=== PATIENT | female | born 2000 | race Two or more races ===

== ENCOUNTER → 2022-10-29 | Outpatient (CLI) | payer BC ==
[2022-10-29 18:31] LABS: HIV 1&2 SCREEN NEGATIVE (NEGATIVE)
[2022-10-29 18:40] LABS: HEPATITIS C VIRUS ABY INDEX 0.2 INDEX (<0.8)
[2022-10-29 19:13] LABS: GC DNA AMPLIFICATION NEGATIVE (NEGATIVE)
== END ==
LOC: M PLALAB 16:16
PROVIDERS: ATTEND Obstetrics & Gynecology
DX: Z34.01 Encounter for supervision of normal first pregnancy, first trimester (principal)

== ENCOUNTER 2023-02-04 09:12 | Outpatient (CLI) | payer BC ==
[~2023-02-04] VITALS: Ht 162.6 cm; Wt 61.8 kg
[2023-02-04 09:35] VITALS: BP 126/61
[2023-02-04] MEDS ORDERED: BENA25CA4 PO (09:46)
[2023-02-04] MEDS ORDERED: ACET-897 PO (09:46)
[2023-02-04] MEDS ORDERED: PRENTAB9 PO (09:46)
[2023-02-04] MEDS ORDERED: HOME MED LIST COMPLETE! XX SCH (09:50)
[2023-02-04 10:54] LABS: APPEARANCE, URINE HAZY (CLEAR); BACTERIA, URINE AUTO 1+ (NEGATIVE); BILIRUBIN, URINE AUTO NEGATIVE (NEGATIVE); BLOOD, URINE BLOOD NEGATIVE (NEGATIVE); COLOR, URINE YELLOW (YELLOW); GLUCOSE, URINE (UA) AUTO NEGATIVE (NEGATIVE); KETONE, URINE AUTO NEGATIVE (NEGATIVE); LEUKOCYTE ESTERASE, URINE AUTO TRACE (NEGATIVE); MUCUS, URINE SMALL (NEGATIVE); NITRITE, URINE AUTO NEGATIVE (NEGATIVE); PROTEIN, URINE AUTO NEGATIVE (NEGATIVE); RBC, URINE AUTO 0 /HPF (0-3); SPECIFIC GRAVITY URINE AUTO 1.012 (1.002-1.035); SQUAMOUS EPITHELIAL CELL UR AU 5 /HPF (0-6); UROBILINOGEN, URINE AUTO 0.2 mg/dL (0.0-2.0); WBC, URINE AUTO 2 /HPF (0-3)
[2023-02-04 11:11] VITALS: BP 107/58
[2023-02-04 11:11] LABS: BASO % 0.4 % (0.0-1.0); EOS # 0.1 10^3/uL (0.0-0.5); EOS % 1.3 % (0.0-3.0); HEMATOCRIT 34.2 % (36.0-47.0); HEMOGLOBIN 11.5 g/dl (12.0-15.5); LYMPH # 1.5 10^3/uL (1.5-5.0); LYMPH % 13.4 % (24.0-44.0); MEAN CORPUSCULAR HEMOGLOBIN 31.2 pg (27.0-33.0); MEAN CORPUSCULAR HGB CONC 33.6 g/dl (32.0-36.5); MEAN CORPUSCULAR VOLUME 92.7 fl (80.0-96.0); MONO # 1.1 10^3/uL (0.0-0.8); MONO % 9.9 % (2.0-8.0); NEUTROPHILS # 8.2 10^3/uL (1.5-8.5); NEUTROPHILS % 74.1 % (36.0-66.0); PLATELET COUNT, AUTOMATED 244 10^3/uL (150-450); RED BLOOD COUNT 3.69 10^6/uL (4.00-5.40); WHITE BLOOD COUNT 11.1 10^3/uL (4.0-10.0)
[2023-02-04 13:57] VITALS: BP 116/59; O2SAT 100
[2023-02-04] MEDS ORDERED: LIDOCAINE 1% MDV 20ML VIAL INFIL PRN (14:00)
[2023-02-04] MEDS ORDERED: OXYTOCIN DRIP 30 UNITS in IV 1 EA IV PRN (14:00)
[2023-02-04] MEDS ORDERED: miSOPROStol 50MCG 1/2 TABLET SL SCH (14:05)
[2023-02-04 16:10] VITALS: BP 122/57; O2SAT 100
[2023-02-04] MEDS ORDERED: CYCLOBENZAPRINE 10MG TABLET PO ONE (17:15)
[2023-02-04] MEDS ORDERED: PERCOCET 5MG/325MG TAB PO ONE (17:15)
[2023-02-04 18:11] VITALS: BP 122/62; O2SAT 99
[2023-02-04] MEDS ORDERED: CYCL-707 PO (20:04)
[2023-02-04] MEDS ORDERED: OXYC1TAB23 PO (20:05)
== END 2023-02-04 18:15 | disposition home or self-care (01) ==
LOC: M LDO 09:12
PROVIDERS: ATTEND Specialist
DX: O26.892 Other specified pregnancy related conditions, second trimester (principal); M54.50 Low back pain, unspecified; Z3A.25 25 weeks gestation of pregnancy
CPT/HCPCS: 36415; 59025; 74181; 76857; 81001; 85025; 87086; G0463

== ENCOUNTER → 2023-02-17 | Outpatient (CLI) | payer BC ==
[~2023-02-17] MED LIST: ACET-897 PO; BENA25CA4 PO; CYCL-707 PO; OXYC1TAB23 PO; PRENTAB9 PO
[2023-02-17 14:52] LABS: HEMATOCRIT 35.3 % (36.0-47.0); HEMOGLOBIN 11.6 g/dl (12.0-15.5); MEAN CORPUSCULAR HEMOGLOBIN 30.8 pg (27.0-33.0); MEAN CORPUSCULAR HGB CONC 32.9 g/dl (32.0-36.5); MEAN CORPUSCULAR VOLUME 93.6 fl (80.0-96.0); PLATELET COUNT, AUTOMATED 298 10^3/uL (150-450); RED BLOOD COUNT 3.77 10^6/uL (4.00-5.40); WHITE BLOOD COUNT 10.6 10^3/uL (4.0-10.0)
[2023-02-17 16:15] LABS: GC DNA AMPLIFICATION NEGATIVE (NEGATIVE)
== END ==
LOC: M PLALAB 09:17
PROVIDERS: ATTEND Advanced Practice Midwife
DX: Z34.82 Encounter for supervision of other normal pregnancy, second trimester (principal)

== ENCOUNTER → 2023-04-22 | Outpatient (REF) | payer BC | LOC: M SFHCWAGY 16:51 | PROVIDERS: ATTEND Specialist | DX: Z34.83 Encounter for supervision of other normal pregnancy, third trimester (principal) ==

== ENCOUNTER 2023-05-17 06:16 | Inpatient (IN) | payer OTHER, BC ==
[2023-05-17] VITALS (30 sets, daily range): BP systolic 85–245; BP diastolic 49–121; O2SAT 98–100
[~2023-05-17] VITALS: Ht 162.6 cm; Wt 67.3 kg
[2023-05-17] MEDS ORDERED: HOME MED LIST COMPLETE! XX SCH (06:45)
[2023-05-17] MEDS ORDERED: LACTATED RINGER'S 1000 ML IV STA (07:31)
[2023-05-17] MEDS ORDERED: CARBOPROST TROMETHAMINE 250 MCG/ML AMP IM PRN (07:35)
[2023-05-17] MEDS ORDERED: METHYLERGONOVINE MALEATE 0.2MG/ML 1ML VIAL IM PRN (07:35)
[2023-05-17] MEDS ORDERED: TRANEXAMIC ACID INJection 1,000 MG in NS 100 ML IV PRN (07:35)
[2023-05-17] MEDS ORDERED: LR 1,000 ML IV SCH (07:35)
[2023-05-17] MEDS ORDERED: OXYTOCIN DRIP 30 UNITS in IV 1 EA IV PRN (07:35)
[2023-05-17] MEDS ORDERED: LIDOCAINE 1% MDV 20ML VIAL INFIL PRN (07:35)
[2023-05-17 07:58] LABS: HEMATOCRIT 34.4 % (36.0-47.0); HEMOGLOBIN 11.1 g/dl (12.0-15.5); MEAN CORPUSCULAR HEMOGLOBIN 26.4 pg (27.0-33.0); MEAN CORPUSCULAR HGB CONC 32.3 g/dl (32.0-36.5); MEAN CORPUSCULAR VOLUME 81.7 fl (80.0-96.0); PLATELET COUNT, AUTOMATED 301 10^3/uL (150-450); RED BLOOD COUNT 4.21 10^6/uL (4.00-5.40); WHITE BLOOD COUNT 12.9 10^3/uL (4.0-10.0)
[2023-05-17] MEDS ORDERED: EPIDURAL/PCA KEYS XX PRN (08:40)
[2023-05-17] MEDS ORDERED: FENTANYL/ROPIVACAINE/NACL BAG 100 ML EPIDURAL SCH (08:40)
[2023-05-17] MEDS ORDERED: ePHEDrine SULFATE 25 MG/5 ML(5MG/ML) SYRINGE IVP PRN (08:40)
[2023-05-17] MEDS ORDERED: diphenhydrAMINE 50MG/ML VIAL IV PRN (08:40)
[2023-05-17] MEDS ORDERED: NALOXONE INJ 0.4MG/1ML VIAL IV PRN (08:40)
[2023-05-17] MEDS ORDERED: LR 500 ML IV PRN (08:40)
[2023-05-17] MEDS ORDERED: ONDANSETRON 4MG 2ML VIAL IV PRN (08:40)
[2023-05-17] MEDS: PRENATAL VITAMINS CHEWABLE TABLET PO SCH (09:00)
[2023-05-17] MEDS ORDERED: OXYTOCIN DRIP 30 UNITS in IV 1 EA IV SCH ×2 (10:55→13:35)
[2023-05-17] MEDS ORDERED: METHYLERGONOVINE MALEATE 0.2 MG TAB PO PRN (13:35)
[2023-05-17] MEDS ORDERED: ACETAMINOPHEN TAB 650MG DOSE (2X325MG) PO PRN (13:35)
[2023-05-17] MEDS ORDERED: ACETAMINOPHEN 500 MG TAB PO PRN (13:35)
[2023-05-17] MEDS ORDERED: IBUPROFEN 600MG TAB PO PRN (13:35)
[2023-05-17] MEDS ORDERED: RHOGAM 300MCG (1500IU) INJ IM SCH (13:35)
[2023-05-17] MEDS ORDERED: DIBUCAINE 1% OINTMENT 30GM TOP PRN (13:35)
[2023-05-17] MEDS ORDERED: IBUPROFEN 800 MG TAB PO PRN (13:35)
[2023-05-17] MEDS ORDERED: DOCUSATE SODIUM 100MG CAPSULE PO PRN (13:35)
[2023-05-18 06:00] VITALS: BP 112/65; O2SAT 99
[2023-05-18] MEDS: PRENATAL VITAMINS CHEWABLE TABLET PO SCH (09:47)
[2023-05-18 23:00] VITALS: BP 118/68
[2023-05-19 06:00] VITALS: BP 118/71; O2SAT 100
[2023-05-19] MEDS ORDERED: MEASLES,MUMPS,RUBELLA VACCINE INJ (MMR-II) SC.IMMUN ONE (09:00)
[2023-05-19] MEDS: PRENATAL VITAMINS CHEWABLE TABLET PO SCH (10:21)
[2023-05-19] MEDS ORDERED: IBUP80TA PO (10:54)
[2023-05-19] MEDS ORDERED: ACET-683 PO (10:54)
== END 2023-05-19 14:45 | disposition home or self-care (01) | DRG 807 ==
LOC: M LDO 06:16 → M LDI 07:02 → M OBS 15:29
PROVIDERS: ADMIT Advanced Practice Midwife; ATTEND Obstetrics & Gynecology
PROC: 10E0XZZ Delivery of Products of Conception, External Approach (ICD-10-PCS; principal; 2023-05-17)
DX: O69.81X0 Labor and delivery complicated by cord around neck, without compression, not applicable or unspecified (principal); Z37.0 Single live birth; Z3A.39 39 weeks gestation of pregnancy